=== PATIENT | male | born 1980 | race Caucasian/White ===

== ENCOUNTER 2017-03-24 16:04 | Emergency (ER) | payer OTHER ==
[2017-03-24] MEDS ORDERED: TDAP ADULT 0.5 ML INJ (BOOSTRIX) IM ONE (16:14)
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
[2017-03-24] MEDS ORDERED: IOPAMIDOL (ISOVUE 370) 100 ML BTL IV ONE (16:56)
[2017-03-24 18:13] VITALS: BP 145/67; PULSE 88; RESP 14; TEMP 98.4; O2SAT 98
== END 2017-03-24 18:05 ==
LOC: EEVIPCON 16:04
PROC: 0HQJXZZ Repair Left Upper Leg Skin, External Approach (ICD-10-PCS; principal; 2017-03-24)
DX: S71.012A Laceration without foreign body, left hip, initial encounter (principal); X99.1XXA Assault by knife, initial encounter
CPT/HCPCS: Q9967

== ENCOUNTER 2019-01-12 13:03 | Emergency (ER) | payer MEDICAID, OTHER | END 2019-01-12 14:42 | disposition home or self-care (01) ==